=== PATIENT | female | born 1980 | race Caucasian/White ===

== ENCOUNTER 2018-04-13 07:18 | Emergency (ER) | payer OTHER ==
[2018-04-13] MEDS ORDERED: LEVALBUTEROL 1.25 MG/3 ML NEB ONE (07:44)
--- NOTE | 2018-04-13 08:56 | RAD REPORT ---
EXAM DESCRIPTION: RAD - Chest Pa And Lat (2 Views) - 04/13/2018 8:31 am CLINICAL HISTORY: COUGH Chest pain. COMPARISON: No comparisons FINDINGS: The lungs are clear. The heart is normal in size. No displaced fractures. IMPRESSION: No acute or concerning finding suspected.
--- NOTE | 2018-04-13 09:33 | ER ---
Nurse's Notes [facility] Name: Maria De Jesus Enriquez Age: 37 yrs Sex: Female : 1980 Arrival Date: 04/13/2018 Time: 07:24 Bed 19 Private MD: out of town, doctor Diagnosis: Cough Presentation: 04/13 07:25 Presenting complaint: Patient states: Sinus congestion, chest congestion and cough, sg reports hx of asthma, does not use medications to control it, just hasnt been bad until I moved down here. Transition of care: patient was not received from another setting of care. Onset of symptoms was April 13, 2018. Risk Assessment: Do you want to hurt yourself or someone else? Patient reports no desire to harm self or others. 07:25 Method Of Arrival: Ambulatory sg 07:25 Acuity: CHANDANA 4 sg 07:31 Initial Sepsis Screen: Does the patient meet any 2 criteria? No. Patient's initial tw2 sepsis screen is negative. Does the patient have a suspected source of infection? No. Patient's initial sepsis screen is negative. Care prior to arrival: None. 07:32 Risk Assessment: Do you want to hurt yourself or someone else? Patient reports no tw2 desire to harm self or others. 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 tw2 Historical: - Allergies: 07:33 No Known Allergies; sg - PMHx: 07:33 Diabetes - IDDM; Asthma; sg - Immunization history:: Adult Immunizations. - Social history:: Smoking status: . - Ebola Screening: : Patient denies travel to an Ebola-affected area in the 21 days before illness onset. - Family history:: not pertinent. - Hospitalizations: : No recent hospitalization is reported. Screenin:30 Abuse screen: Denies threats or abuse. Nutritional screening: No deficits noted. tw2 Tuberculosis screening: No symptoms or risk factors identified. Fall Risk None identified. Assessment: 07:40 General: Appears in no apparent distress. Behavior is calm, cooperative, appropriate tw2 for age. Pain: Complains of pain in throat. Neuro: Level of Consciousness is awake, alert, obeys commands, Oriented to person, place, time, situation. Cardiovascular: Patient's skin is warm and dry. Respiratory: Airway is patent Respiratory effort is even, unlabored, Respiratory pattern is regular, symmetrical, Breath sounds are clear bilaterally. Respiratory: Reports cough that is. GI: No signs and/or symptoms were reported involving the gastrointestinal system. : No signs and/or symptoms were reported regarding the genitourinary system. EENT: Reports nasal congestion nasal discharge. EENT: Reports pain when swallowing. Derm: No signs and/or symptoms reported regarding the dermatologic system. Musculoskeletal: Range of motion: intact in all extremities. 09:03 Reassessment: Patient appears in no apparent distress at this time. No changes from tw2 previously documented assessment. Patient and/or family updated on plan of care and expected duration. Pain level reassessed. Patient is alert, oriented x 3, equal unlabored respirations, skin warm/dry/pink. 09:33 Reassessment: Patient appears in no apparent distress at this time. No changes from tw2 previously documented assessment. Patient and/or family updated on plan of care and expected duration. Pain level reassessed. Patient is alert, oriented x 3, equal unlabored respirations, skin warm/dry/pink. Vital Signs: 07:33 BP 133 / 92; Pulse 108; Resp 18; Temp 97.6; Pulse Ox 100% on R/A; sg 09:02 BP 129 / 64; Pulse 84; Resp 17; Pulse Ox 97% on R/A; tw2 ED Course: 07:24 Patient arrived in ED. sb2 07:24 out of town, doctor is Private Physician. sb2 07:25 Zaire Holley MD is Attending Physician. rn 07:25 Bed in low position. Call light in reach. Adult w/ patient. Pulse ox on. NIBP on. tw2 07:30 Renetta Edwards, DOMINIQUE is Primary Nurse. tw2 07:31 Arm band placed on. tw2 07:33 Triage completed. sg 07:40 Strep Sent. tw2 07:40 Flu Sent. tw2 08:07 Patient moved to radiology via wheelchair. sw 08:11 X-ray completed. Patient tolerated procedure well. Patient moved back from radiology. sw 08:34 XRAY Chest Pa And Lat (2 Views) In Process Unspecified. EDMS 09:33 No provider procedures requiring assistance completed. Patient did not have IV access tw2 during this emergency room visit. Administered Medications: 07:40 Drug: Xopenex 1.25 mg Route: Inhalation; tw2 Outcome: 09:30 Discharge ordered by . dominique 09:33 Discharged to home ambulatory, with friend. tw2 :33 Condition: stable :33 Discharge instructions given to patient, friend, Instructed on discharge instructions, follow up and referral plans. medication usage, Demonstrated understanding of instructions, follow-up care, medications, Prescriptions given X 1. :33 Patient left the ED. tw2 Signatures: Dispatcher [employer] EDMS Mendel Newman RN RN Zaire Holley MD MD rn Warren, Shannon sw Wise, Tara, RN RN tw2 Chhaya Zheng 2
--- NOTE | 2018-04-13 09:33 | EDPHYS ---
Physician Documentation [facility] Name: Maria De Jesus Enirquez Age: 37 yrs Sex: Female : 1980 Arrival Date: 04/13/2018 Time: 07:24 Bed 19 Private MD: out of town, doctor ED Physician Zaire Holley HPI: 04/13 07:49 This 37 yrs old Female presents to ER via Ambulatory with complaints of Cough.rn 07:49 The patient or guardian reports cough, described as mild, with productive sputum. rn Onset: The symptoms/episode began/occurred 1 week(s) ago. Severity of symptoms: At their worst the symptoms were mild, in the emergency department the symptoms are unchanged. Modifying factors: The symptoms are alleviated by nothing, the symptoms are aggravated by nothing. The patient has experienced a previous episode. The patient has not recently seen a physician. REports smoker, + 1 week of cough and subjective sob, no hemoptysis, no fever, feels like has bronchitis. + sore throat. . VENDETTE: 07:41 LMP N/A - . tw2 Historical: - Allergies: 07:33 No Known Allergies; sg - PMHx: 07:33 Diabetes - IDDM; Asthma; sg - Immunization history:: Adult Immunizations. - Social history:: Smoking status: . - Ebola Screening: : Patient denies travel to an Ebola-affected area in the 21 days before illness onset. - Family history:: not pertinent. - Hospitalizations: : No recent hospitalization is reported. ROS: 07:49 Constitutional: Negative for fever, chills, and weight loss, Eyes: Negative for injury, rn pain, redness, and discharge, Neck: Negative for injury, pain, and swelling, Cardiovascular: Negative for chest pain, palpitations, and edema, Respiratory: + sob and cough Abdomen/GI: Negative for abdominal pain, nausea, vomiting, diarrhea, and constipation, MS/Extremity: Negative for injury and deformity, Skin: Negative for injury, rash, and discoloration, Neuro: Negative for headache, weakness, numbness, tingling, and seizure. Exam: 07:49 Constitutional: This is a well developed, well nourished patient who is awake, alert, rn and in no acute distress. Head/Face: Normocephalic, atraumatic. Eyes: Pupils equal round and reactive to light, extra-ocular motions intact. Lids and lashes normal. Conjunctiva and sclera are non-icteric and not injected. Cornea within normal limits. Periorbital areas with no swelling, redness, or edema. ENT: dry MM, no stridor Cardiovascular: Tachycardic, regular, no murmur Respiratory: Lungs have equal breath sounds bilaterally, clear to auscultation. No increased work of breathing, no retractions or nasal flaring. Skin: Warm, dry with normal turgor. Normal color with no rashes, no lesions, and no evidence of cellulitis. MS/ Extremity: Pulses equal, no cyanosis. Neurovascular intact. Full, normal range of motion. Equal circumference. Neuro: Awake and alert, GCS 15, oriented to person, place, time, and situation. Cranial nerves II-XII grossly intact. Motor strength 5/5 in all extremities. Sensory grossly intact. Cerebellar exam normal. Vital Signs: 07:33 BP 133 / 92; Pulse 108; Resp 18; Temp 97.6; Pulse Ox 100% on R/A; sg 09:02 BP 129 / 64; Pulse 84; Resp 17; Pulse Ox 97% on R/A; tw2 MDM: 07:25 Patient medically screened. rn 09:28 Differential Diagnosis: Bronchitis Influenza Upper Respiratory Infection Viral Syndrome rn Pneumonia. Data reviewed: vital signs, nurses notes, lab test result(s), radiologic studies, plain films, and as a result, I will discharge patient. Counseling: I had a detailed discussion with the patient and/or guardian regarding: the historical points, exam findings, and any diagnostic results supporting the discharge/admit diagnosis, lab results, radiology results, the need for outpatient follow up, to return to the emergency department if symptoms worsen or persist or if there are any questions or concerns that arise at home. Response to treatment: the patient's symptoms have mildly improved after treatment, and as a result, I will discharge patient. Special discussion: I discussed with the patient/guardian in detail that at this point there is no indication for admission to the hospital. It is understood, however, that if the symptoms persist or worsen the patient needs to return immediately for re-evaluation. 04/13 07:32 Order name: Flu; Complete Time: 08:14 rn 04/13 07:32 Order name: Strep; Complete Time: 08:14 rn 04/13 07:32 Order name: XRAY Chest Pa And Lat (2 Views); Complete Time: 09:05 rn 04/13 08:59 Order name: Throat Culture EDMS Administered Medications: 07:40 Drug: Xopenex 1.25 mg Route: Inhalation; tw2 Disposition: 04/13/18 09:30 Discharged to Home. Impression: Cough. - Condition is Stable. - Discharge Instructions: Cough, Adult. - Prescriptions for Albuterol Sulfate 90 mcg/actuation - inhale 1-2 puff by INHALATION route every 4-6 hours; 1 Inhaler. - Medication Reconciliation Form, Thank You Letter, Antibiotic Education, Prescription Opioid Use form. - Follow up: Private Physician; When: As needed; Reason: Recheck today's complaints, Re-evaluation by your physician. - Problem is new. - Symptoms have improved. Signatures: Dispatcher [employer] EDMS Mendel Newman RN RN sg Nieto, Roman, MD MD rn Wise, Tara, RN RN tw2 Corrections: (The following items were deleted from the chart) 09:33 09:30 04/13/2018 09:30 Discharged to Home. Impression: Cough. Condition is Stable. tw2 Forms are Medication Reconciliation Form, Thank You Letter, Antibiotic Education, Prescription Opioid Use. Follow up: Private Physician; When: As needed; Reason: Recheck today's complaints, Re-evaluation by your physician. Problem is new. Symptoms have improved. rn
== END 2018-04-13 09:33 | disposition home or self-care (01) ==
LOC: ER 07:18
DX: R05 Cough (principal); F17.200 Nicotine dependence, unspecified, uncomplicated
CPT/HCPCS: 71046; 87070; 87081; 87804; 99284